=== PATIENT | female | born 1970 | race Caucasian/White ===

== ENCOUNTER → 2021-06-26 | Day surgery (SDC) | payer OTHER ==
[~2021-06-26] MED LIST: ALEVE220 MG PO; AMBIEN10 MG PO; BENTYL 20MG TAB20 MG PO; FOLIC ACID 1 MG1 MG PO; HYGROTON TAB 2525 MG PO; KLONOPIN0.5 MG PO; LAMICTAL TAB 1100 MG PO; LIPITOR TAB 1010 MG PO; METHOTREXATE T2.5 MG PO; MOBIC15 MG PO; NURTEC ODT75 MG PO; OMEPRAZOLE40 MG PO; OTEZLA30 MG PO; TYLENOL EXTRA500 MG PO; VITAMIN D3125 MCG PO; WELLBUTRIN XL150 MG PO
== END | disposition home or self-care (01) ==
LOC: OR 07:04
DX: Z12.11 Encounter for screening for malignant neoplasm of colon (principal); K63.5 Polyp of colon; K29.80 Duodenitis without bleeding; K31.9 Disease of stomach and duodenum, unspecified; K21.9 Gastro-esophageal reflux disease without esophagitis; K64.4 Residual hemorrhoidal skin tags; F40.01 Agoraphobia with panic disorder; G43.009 Migraine without aura, not intractable, without status migrainosus; E66.9 Obesity, unspecified; F17.210 Nicotine dependence, cigarettes, uncomplicated; F32.9 Major depressive disorder, single episode, unspecified; E78.5 Hyperlipidemia, unspecified; I10 Essential (primary) hypertension; M19.90 Unspecified osteoarthritis, unspecified site; L40.9 Psoriasis, unspecified; Z86.010 Personal history of colon polyps; Z68.35 Body mass index [BMI] 35.0-35.9, adult; Z79.1 Long term (current) use of non-steroidal anti-inflammatories (NSAID); Z79.899 Other long term (current) drug therapy
CPT/HCPCS: J2704